=== PATIENT | female | born 1980 | race Two or more races ===

== ENCOUNTER 2020-09-28 22:15 | Inpatient (IN) | payer MEDICAID, SELFPAY ==
[~2020-09-28] VITALS: Ht 152.4 cm; Wt 72.6 kg
[2020-09-28] MEDS ORDERED: MISOPROSTOL 25 MCG TAB VG PRN (22:40)
[2020-09-28] MEDS ORDERED: OXYTOCIN 20 UNITS in LACTATED RINGERS 1,000 ML IV SCH (22:40)
[2020-09-28] MEDS ORDERED: METHYLERGONOVINE 0.2 MG/ML AMP IM SCH (22:45)
[2020-09-28 23:00] LABS: APPEARANCE,URINE SL CLOUDY (CLEAR); BILIRUBIN,URINE NEGATIVE (NEGATIVE); BLOOD, URINE NEGATIVE (NEGATIVE); COLOR,URINE YELLOW (YELLOW); LEUKOCYTE ESTERASE ,URINE NEGATIVE (NEGATIVE); NITRITE, URINE NEGATIVE (NEGATIVE); UGLUCOSE NEGATIVE (NEGATIVE)
[2020-09-28 23:03] LABS: BASOPHILS # (AUTO) 0.1 K/uL (0.00-0.22); BASOPHILS % (AUTO) 0.5 % (0.0-2.0); EOSINOPHILS # (AUTO) 0.1 K/uL (0-0.4); EOSINOPHILS % (AUTO) 1.2 % (0.0-4.0); HEMATOCRIT 33.9 % (36-48); HEMOGLOBIN 11.5 g/dL (12.0-16.0); LYMPHOCYTES # (AUTO) 2.9 K/uL (2.5-16.5); MEAN CORPUSCULAR HEMOGLOBIN 33 pg (27-31); MEAN CORPUSCULAR HGB CONC 34 g/dL (33-37); MEAN CORPUSCULAR VOLUME 96.3 fL (80-94); MONOCYTES # (AUTO) 0.9 K/uL (0.8-1.0); MONOCYTES % (AUTO) 7.8 % (1.7-9.3); NEUTROPHILS # (AUTO) 7.2 K/uL (1.8-7.7); NEUTROPHILS % (AUTO) 64.5 % (42.2-75.2); PLATELET COUNT (AUTO) 148 K/uL (140-450); RED BLOOD CELL COUNT(AUTO) 3.52 MIL/uL (4.20-5.40); RED CELL DISTRIBUTION WIDTH 14.6 % (11.6-13.7); WHITE BLOOD COUNT (AUTO) 11.1 K/uL (4.8-10.8)
[2020-09-28 23:18] LABS: ALBUMIN 2.7 g/dL (3.4-5.0); ANION GAP 14.8 (8-16); CREATININE 0.7 mg/dL (0.6-1.3); POTASSIUM 3.8 mmol/L (3.5-5.1); TOTAL BILIRUBIN 0.2 mg/dL (0.0-1.0)
[2020-09-29] MEDS: LACTATED RINGERS 1,000 ML IV SCH ×4 (00:01→17:34)
[2020-09-29] MEDS ORDERED: OXYTOCIN 20 UNITS/LR PREMIX 1,000 ML IV ONE ×2 (00:52→18:45)
[2020-09-29 07:58] VITALS: BP 132/88
[2020-09-29] MEDS ORDERED: NACL 0.9% 1,000 ML IV SCH (08:05)
--- NOTE | 2020-09-29 08:54 | NUR ---
PATIENT HAS BEEN SCREENED AND CATEGORIZED LOW NUTRITION RISK. PATIENT WILL BE SEEN WITHIN 7 DAYS OF ADMISSION. 10/05/[address]
[2020-09-29] MEDS ORDERED: cefTRIAXone 2,000 MG in DEXTROSE 5% 100 ML IV SCH (09:00)
[2020-09-29] MEDS: MORPHINE SULFATE 10 MG/ML VIAL IVP PRN ×2 (11:36→16:05)
[2020-09-29] MEDS: ONDANSETRON 4 MG/2 ML VIAL IVP PRN ×2 (11:36→16:06)
[2020-09-29] MEDS ORDERED: diphenhydrAMINE 50 MG/ML VIAL IVP SCH (11:56)
[2020-09-29] MEDS ORDERED: LIDOCAINE 1% 500 MG/50 ML VIAL ONE (15:58)
[2020-09-29 16:05] VITALS: BP 121/65
[2020-09-29] MEDS ORDERED: ROPIVACAINE 0.2%/NS PREMIX 200 ML EPI ONE (17:04)
[2020-09-29] MEDS ORDERED: METHYLERGONOVINE 0.2 MG/ML AMP IM PRN (18:55)
[2020-09-29] MEDS ORDERED: DOCUSATE SODIUM 100 MG GELCAP PO PRN (18:55)
[2020-09-29] MEDS ORDERED: BENZOCAINE/MENTHOL 20%-0.5% 60 GM CAN TP PRN (18:55)
[2020-09-29] MEDS ORDERED: METHYLERGONOVINE 0.2 MG TAB PO PRN (18:55)
[2020-09-29] MEDS ORDERED: SIMETHICONE 80 MG TAB.CHEW PO PRN (18:55)
[2020-09-29] MEDS ORDERED: MEASLES, MUMPS, AND RUBELLA 1 VIAL SQVAC PRN (18:55)
[2020-09-29] MEDS ORDERED: bisacodyL 5 MG TABEC PO PRN (18:55)
[2020-09-29] MEDS ORDERED: OXYTOCIN 10 UNITS/ML VIAL IM PRN (18:55)
[2020-09-29] MEDS ORDERED: IBUPROFEN 800 MG TAB PO PRN (18:55)
[2020-09-30] MEDS ORDERED: LACTATED RINGERS 1,000 ML IV SCH (06:00)
[2020-09-30 10:06] LABS: HEMATOCRIT 32.4 % (36-48); HEMOGLOBIN 11.1 g/dL (12.0-16.0)
[2020-09-30] MEDS: IBUPROFEN 600 MG TAB PO PRN (16:49)
[2020-10-01] MEDS: IBUPROFEN 600 MG TAB PO PRN (12:25)
== END 2020-10-01 13:20 | disposition home or self-care (01) | DRG 560 ==
LOC: MLD 22:15 → MFCC 09-29 22:05
PROVIDERS: ADMIT Obstetrics & Gynecology; ATTEND Obstetrics & Gynecology
PROC: 10E0XZZ Delivery of Products of Conception, External Approach (ICD-10-PCS; principal; 2020-09-30)
PROC: 3E0134Z Introduction of Serum, Toxoid and Vaccine into Subcutaneous Tissue, Percutaneous Approach (ICD-10-PCS; 2020-09-30)
PROC: 3E0234Z Introduction of Serum, Toxoid and Vaccine into Muscle, Percutaneous Approach (ICD-10-PCS; 2020-09-30)
DX: O24.420 Gestational diabetes mellitus in childbirth, diet controlled (principal); O99.02 Anemia complicating childbirth; Z37.0 Single live birth; Z20.822 Contact with and (suspected) exposure to COVID-19; Z3A.39 39 weeks gestation of pregnancy; D64.9 Anemia, unspecified; Z23 Encounter for immunization
CPT/HCPCS: 36415; 51702; 59409; 76815; 80053; 81003; 82948; 85018; 85025; 86592; 86886; 86900; 86901; 90707; 90715; J0696; J1200; J2001; J2270; J2405; J2590; J2795; J7060; J7120